=== PATIENT | female | born 1975 | race Two or more races ===

== ENCOUNTER 2024-10-18 11:32 | Emergency (ER) | payer OTHER ==
[~2024-10-18] VITALS: Ht 152.4 cm; Wt 56.7 kg
[2024-10-18] MEDS ORDERED: ONDANSETRON ODT4 MG PO (17:33)
== END 2024-10-18 17:58 ==
LOC: ER 11:32
DX: S09.8XXA Other specified injuries of head, initial encounter (principal); V00.141A Fall from scooter (nonmotorized), initial encounter; Y93.89 Activity, other specified; Y92.413 State road as the place of occurrence of the external cause